=== PATIENT | female | born 1945 | race African-American/Black ===

== ENCOUNTER 2021-05-18 00:19 | Inpatient (IN) | payer MEDICARE, OTHER ==
[~2021-05-18] VITALS: Ht 157.5 cm; Wt 121.0 kg
[2021-05-18] MEDS ORDERED: FUROSEMIDE 40 MG/4 ML VIAL IV ONE (02:00)
[2021-05-18 02:41] LABS: Eosinophils # (auto) 0 10 ^3/uL (0-0.8)
[2021-05-18 02:44] LABS: Basophils # (auto) 0 10 ^3/uL (0-0.2); Basophils % (auto) 0.1 % (0.0-2.0); Hemoglobin 9.1 g/dL (12.2-16.2); Lymphocytes # (auto) 1.2 10 ^3/uL (0.4-5.4); Lymphocytes % (auto) 5.3 % (10.0-50.0); Mean Corpuscular Hemoglobin 26.4 pg (28.0-32.0); Mean Corpuscular Hgb Conc. 29.4 g/dL (32.0-36.0); Mean Corpuscular Volume 89.6 fL (80.0-100.0); Monocytes # (auto) 3.3 10 ^3/uL (0-1.3); Neutrophils # (auto) 17.6 10 ^3/uL (1.6-8.6); Neutrophils % (auto) 79.6 % (37.0-80.0); Red Blood Cells 3.46 10^6/uL (4.0-5.20); Red Cell Distribution Width 19.1 % (11.8-14.3); White Blood Cell 22.2 10^3/uL (4.4-10.8)
[2021-05-18 03:07] LABS: Albumin 2.3 g/dL (3.4-5.0); BUN/Creatinine Ratio 23.1; Calcium 9.8 mg/dL (8.5-10.1); Magnesium 2.3 mg/dL (1.6-2.6); Potassium 4.4 mmol/L (3.5-5.1)
[2021-05-18 03:10] LABS: Bilirubin, Total 0.3 mg/dL (0.2-1.0); Total Protein 7.8 g/dL (6.4-8.2)
[2021-05-18 03:14] LABS: Amphetamine Screen, Urine NEGATIVE (NEGATIVE); Barbiturate Scree,Urine NEGATIVE (NEGATIVE); Benzodiazephine Screen, Urine NEGATIVE (NEGATIVE); Cannabinoid Screen, Urine NEGATIVE (NEGATIVE); Cocaine Screen, Urine NEGATIVE (NEGATIVE)
[2021-05-18 03:16] LABS: Opiate Scree,Urine NEGATIVE (NEGATIVE); Phencyclidine Screen, Urine NEGATIVE (NEGATIVE)
[2021-05-18] MEDS ORDERED: ONDANSETRON HCL 4 MG/2 ML VIAL IV PRN (03:45)
[2021-05-18] MEDS ORDERED: ACETAMINOPHEN 325 MG TAB PO PRN (03:45)
[2021-05-18] MEDS ORDERED: AZITHROMYCIN 500MG/ 250ML 250 ML IV ONE (03:45)
[2021-05-18] MEDS ORDERED: DOCUSATE SOD 100 MG CAP PO PRN (03:45)
[2021-05-18] MEDS ORDERED: cefTRIAXone 1GM/50ML D5W 50 ML IV ONE ×3 (03:57→13:30)
[2021-05-18] MEDS ORDERED: NITROGLYCERIN 0.4 MG SL TAB SL PRN (05:30)
[2021-05-18] MEDS ORDERED: MORPHINE SULFATE INJECTION 2 MG/ML SYRG IV PRN (05:30)
[2021-05-18 05:38] LABS: Urine Bacteria NONE SEEN /hpf (None Seen); Urine Blood Negative /uL (Negative); Urine Hyaline Cast MOD /lpf (0 - 2); Urine Mucus FEW (None Seen); Urine Specific Gravity 1.016 (1.001-1.035); Urine WBC 106 /hpf (0 - 5); Urine WBC Clumps PRESENT /hpf (None Seen)
[2021-05-18 06:25] VITALS: BP 112/56
[2021-05-18] MEDS: SODIUM CHLOR 0.9% PF (SALINE LOCK) 10ML VIAL/SYR IV SCH ×3 (07:27→22:25)
[2021-05-18 08:08] LABS: Basophils # (auto) 0 10 ^3/uL (0-0.2); Basophils % (auto) 0.1 % (0.0-2.0); Eosinophils # (auto) 0 10 ^3/uL (0-0.8); Hematocrit 33.1 % (36.0-46.0); Hemoglobin 9.7 g/dL (12.2-16.2); Lymphocytes # (auto) 1.3 10 ^3/uL (0.4-5.4); Lymphocytes % (auto) 6.5 % (10.0-50.0); Mean Corpuscular Hemoglobin 26.3 pg (28.0-32.0); Mean Corpuscular Hgb Conc. 29.2 g/dL (32.0-36.0); Mean Corpuscular Volume 90.1 fL (80.0-100.0); Monocytes # (auto) 2.9 10 ^3/uL (0-1.3); Monocytes % (auto) 14.5 % (0.0-12.0); Neutrophils % (auto) 78.9 % (37.0-80.0); Red Blood Cells 3.68 10^6/uL (4.0-5.20); Red Cell Distribution Width 19.3 % (11.8-14.3); White Blood Cell 20.3 10^3/uL (4.4-10.8)
[2021-05-18 08:27] LABS: Albumin 2.5 g/dL (3.4-5.0); Calcium 10.2 mg/dL (8.5-10.1); Potassium 4.3 mmol/L (3.5-5.1)
[2021-05-18 08:30] LABS: BUN/Creatinine Ratio 24.4; Bilirubin, Total 0.3 mg/dL (0.2-1.0); Total Protein 8.3 g/dL (6.4-8.2)
[2021-05-18] MEDS ORDERED: FAMOTIDINE (10MG/ML) 2ML VL IV SCH (10:00)
[2021-05-18] MEDS: ASCORBIC ACID 500 MG TAB PO SCH ×2 (10:00→22:25)
[2021-05-18] MEDS ORDERED: FUROSEMIDE 40 MG/4 ML VIAL IV SCH (10:00)
[2021-05-18] MEDS: MULTIPLE VITAMIN TAB PO SCH (10:00)
[2021-05-18] MEDS: ZINC SULFATE 220mg CAP or TAB PO SCH (10:00)
[2021-05-18 10:19] VITALS: BP 144/72
[2021-05-18] MEDS: HEPARIN SODIUM (PORCINE) 5000 UNITS/ML 1ML VIAL SC SCH ×2 (12:00→22:26)
[2021-05-18] MEDS: AZITHROMYCIN 500MG/ 250ML 250 ML IV SCH (12:00)
[2021-05-18] MEDS ORDERED: GLUCAGON HYDROCHLORIDE (RDNA) 1 MG VIAL IV ONE (12:30)
[2021-05-18 17:20] LABS: Cholesterol 103 mg/dL (< 200); HDL Cholesterol 43 mg/dL (40-59); LDL Cholesterol 33 mg/dL (< 100); Triglycerides 90 mg/dL (< 150)
[2021-05-18] MEDS: FUROSEMIDE 40 MG/4 ML VIAL IV SCH (18:08)
[2021-05-18 21:10] VITALS: BP 129/55
[2021-05-19 04:03] LABS: Albumin 2.1 g/dL (3.4-5.0); Calcium 9.8 mg/dL (8.5-10.1)
[2021-05-19 04:20] LABS: BUN/Creatinine Ratio 27.1; Bilirubin, Total 0.3 mg/dL (0.2-1.0); Total Protein 6.8 g/dL (6.4-8.2)
[2021-05-19 05:00] VITALS: BP 126/56
[2021-05-19] MEDS: FUROSEMIDE 40 MG/4 ML VIAL IV SCH ×3 (06:00→17:59)
[2021-05-19] MEDS: SODIUM CHLOR 0.9% PF (SALINE LOCK) 10ML VIAL/SYR IV SCH ×3 (06:55→20:51)
[2021-05-19 07:51] LABS: Basophils # (auto) 0.1 10 ^3/uL (0-0.2); Basophils % (auto) 0.6 % (0.0-2.0); Eosinophils # (auto) 0 10 ^3/uL (0-0.8); Eosinophils % (auto) 0.3 % (0.0-7.0); Hematocrit 26.8 % (36.0-46.0); Hemoglobin 8.3 g/dL (12.2-16.2); Lymphocytes # (auto) 1.2 10 ^3/uL (0.4-5.4); Lymphocytes % (auto) 11.3 % (10.0-50.0); Mean Corpuscular Hemoglobin 27.3 pg (28.0-32.0); Mean Corpuscular Volume 87.9 fL (80.0-100.0); Monocytes # (auto) 0.9 10 ^3/uL (0-1.3); Monocytes % (auto) 8.7 % (0.0-12.0); Neutrophils # (auto) 8.2 10 ^3/uL (1.6-8.6); Neutrophils % (auto) 79.1 % (37.0-80.0); Nucleated Red Blood Cells % 0.1 %; Red Blood Cells 3.05 10^6/uL (4.0-5.20); Red Cell Distribution Width 18.3 % (11.8-14.3); White Blood Cell 10.3 10^3/uL (4.4-10.8)
[2021-05-19 08:11] LABS: BUN/Creatinine Ratio 27.6; Calcium 9.9 mg/dL (8.5-10.1); Potassium 4.1 mmol/L (3.5-5.1)
[2021-05-19] MEDS ORDERED: cefTRIAXone 1GM/50ML D5W 50 ML IV SCH (09:00)
[2021-05-19] MEDS: AZITHROMYCIN 500MG/ 250ML 250 ML IV SCH (12:31)
[2021-05-19] MEDS: ZINC SULFATE 220mg CAP or TAB PO SCH (12:31)
[2021-05-19] MEDS: HEPARIN SODIUM (PORCINE) 5000 UNITS/ML 1ML VIAL SC SCH ×2 (12:32→20:53)
[2021-05-19] MEDS: ASCORBIC ACID 500 MG TAB PO SCH ×2 (12:32→20:52)
[2021-05-19] MEDS: MULTIPLE VITAMIN TAB PO SCH (12:32)
[2021-05-19] MEDS ORDERED: VANCOMYCIN PER PHARMACY 0 MG IV SCH (16:00)
[2021-05-19] MEDS: VANCOMYCIN 1GM/250ML 250 ML IV SCH (17:57)
[2021-05-19] MEDS: SACUBITRIL-VALSARTAN 24mg/26mg TAB PO SCH (20:51)
[2021-05-19 22:00] VITALS: BP 134/50
[2021-05-20] MEDS: HYDROcodone-ACET 5/325MG TAB PO PRN (03:03)
[2021-05-20 05:00] VITALS: BP 122/65
[2021-05-20] MEDS: SODIUM CHLOR 0.9% PF (SALINE LOCK) 10ML VIAL/SYR IV SCH ×3 (06:01→21:20)
[2021-05-20] MEDS: FUROSEMIDE 40 MG/4 ML VIAL IV SCH ×2 (06:02→17:38)
[2021-05-20 06:27] LABS: Basophils # (auto) 0 10 ^3/uL (0-0.2); Basophils % (auto) 0.2 % (0.0-2.0); Eosinophils # (auto) 0 10 ^3/uL (0-0.8); Eosinophils % (auto) 0.4 % (0.0-7.0); Hematocrit 27.3 % (36.0-46.0); Hemoglobin 8.5 g/dL (12.2-16.2); Lymphocytes # (auto) 2.5 10 ^3/uL (0.4-5.4); Lymphocytes % (auto) 21.2 % (10.0-50.0); Mean Corpuscular Hemoglobin 27.3 pg (28.0-32.0); Mean Corpuscular Hgb Conc. 31.1 g/dL (32.0-36.0); Monocytes # (auto) 1.6 10 ^3/uL (0-1.3); Monocytes % (auto) 13.2 % (0.0-12.0); Neutrophils # (auto) 7.7 10 ^3/uL (1.6-8.6); Nucleated Red Blood Cells % 0.1 %; Red Cell Distribution Width 18.1 % (11.8-14.3); White Blood Cell 11.9 10^3/uL (4.4-10.8)
[2021-05-20 06:37] LABS: BUN/Creatinine Ratio 26.2; Calcium 9.8 mg/dL (8.5-10.1)
[2021-05-20] MEDS: AZITHROMYCIN 500MG/ 250ML 250 ML IV SCH (09:20)
[2021-05-20] MEDS: SACUBITRIL-VALSARTAN 24mg/26mg TAB PO SCH ×2 (09:20→21:21)
[2021-05-20] MEDS: ASCORBIC ACID 500 MG TAB PO SCH ×2 (09:21→21:21)
[2021-05-20] MEDS: ZINC SULFATE 220mg CAP or TAB PO SCH (09:21)
[2021-05-20] MEDS: MULTIPLE VITAMIN TAB PO SCH (09:21)
[2021-05-20] MEDS: HEPARIN SODIUM (PORCINE) 5000 UNITS/ML 1ML VIAL SC SCH ×2 (09:34→21:22)
[2021-05-20] MEDS: VANCOMYCIN 1GM/250ML 250 ML IV SCH (12:39)
[2021-05-20 13:02] VITALS: BP 111/57
[2021-05-20] MEDS ORDERED: cefTRIAXone 1GM/50ML D5W 50 ML IV ONE (13:15)
[2021-05-20] MEDS ORDERED: HYDR25TA87 PO (14:01)
[2021-05-20] MEDS ORDERED: FURO40TA4 PO (14:01)
[2021-05-20] MEDS ORDERED: MET25T PO (14:01)
[2021-05-20 14:42] LABS: Eosinophils # (auto) 0.1 10 ^3/uL (0-0.8); Lymphocytes # (auto) 3.1 10 ^3/uL (0.4-5.4); Mean Corpuscular Hgb Conc. 30.3 g/dL (32.0-36.0); Monocytes # (auto) 1.9 10 ^3/uL (0-1.3); Nucleated Red Blood Cells % 0.2 %; White Blood Cell 13.6 10^3/uL (4.4-10.8)
[2021-05-20 14:44] LABS: Basophils # (auto) 0.1 10 ^3/uL (0-0.2); Basophils % (auto) 0.5 % (0.0-2.0); Eosinophils % (auto) 0.6 % (0.0-7.0); Hemoglobin 8.8 g/dL (12.2-16.2); Lymphocytes % (auto) 22.8 % (10.0-50.0); Mean Corpuscular Hemoglobin 26.7 pg (28.0-32.0); Mean Corpuscular Volume 88.3 fL (80.0-100.0); Monocytes % (auto) 14.3 % (0.0-12.0); Neutrophils # (auto) 8.4 10 ^3/uL (1.6-8.6); Neutrophils % (auto) 61.8 % (37.0-80.0); Red Blood Cells 3.28 10^6/uL (4.0-5.20); Red Cell Distribution Width 18.5 % (11.8-14.3)
[2021-05-20 16:52] VITALS: BP 133/65
[2021-05-20 22:06] VITALS: BP 106/60
[2021-05-21 05:25] VITALS: BP 121/54
[2021-05-21 05:56] LABS: BUN/Creatinine Ratio 20.1; Calcium 9.2 mg/dL (8.5-10.1); Potassium 4.7 mmol/L (3.5-5.1)
[2021-05-21] MEDS: SODIUM CHLOR 0.9% PF (SALINE LOCK) 10ML VIAL/SYR IV SCH ×2 (06:53→14:00)
[2021-05-21] MEDS: FUROSEMIDE 40 MG/4 ML VIAL IV SCH (06:53)
[2021-05-21 09:05] VITALS: BP 138/85
[2021-05-21] MEDS: cefTRIAXone 1GM/50ML D5W 50 ML IV SCH (09:21)
[2021-05-21] MEDS: ZINC SULFATE 220mg CAP or TAB PO SCH (09:26)
[2021-05-21] MEDS: ASCORBIC ACID 500 MG TAB PO SCH ×2 (09:26→21:42)
[2021-05-21] MEDS: SACUBITRIL-VALSARTAN 24mg/26mg TAB PO SCH ×2 (09:26→21:41)
[2021-05-21] MEDS: MULTIPLE VITAMIN TAB PO SCH (09:27)
[2021-05-21] MEDS: HEPARIN SODIUM (PORCINE) 5000 UNITS/ML 1ML VIAL SC SCH (09:53)
[2021-05-21] MEDS: AZITHROMYCIN 500MG/ 250ML 250 ML IV SCH (11:02)
[2021-05-21] MEDS ORDERED: DRONEDARONE HCL 400 MG TAB PO ONE (12:30)
[2021-05-21 17:00] VITALS: BP 102/59
[2021-05-21] MEDS: FUROSEMIDE 20 MG/2 ML VIAL IV SCH (17:46)
[2021-05-21] MEDS: DRONEDARONE HCL 400 MG TAB PO SCH (21:42)
[2021-05-21] MEDS: APIXABAN 2.5 MG TAB PO SCH (21:43)
[2021-05-21] MEDS: HYDROcodone-ACET 5/325MG TAB PO PRN (21:45)
[2021-05-21 21:47] VITALS: BP 124/56
[2021-05-22] MEDS: SODIUM CHLOR 0.9% PF (SALINE LOCK) 10ML VIAL/SYR IV SCH ×4 (01:05→23:08)
[2021-05-22 05:00] VITALS: BP 100/54
[2021-05-22 06:32] LABS: Hematocrit 28.2 % (36.0-46.0); Hemoglobin 8.8 g/dL (12.2-16.2); Mean Corpuscular Hemoglobin 27.8 pg (28.0-32.0); Mean Corpuscular Hgb Conc. 31.3 g/dL (32.0-36.0); Mean Corpuscular Volume 88.8 fL (80.0-100.0); Red Blood Cells 3.17 10^6/uL (4.0-5.20); Red Cell Distribution Width 17.6 % (11.8-14.3); White Blood Cell 11.4 10^3/uL (4.4-10.8)
[2021-05-22] MEDS: FUROSEMIDE 20 MG/2 ML VIAL IV SCH ×2 (06:45→23:06)
[2021-05-22 06:51] LABS: BUN/Creatinine Ratio 23.3; Calcium 9.2 mg/dL (8.5-10.1); Potassium 4.7 mmol/L (3.5-5.1)
[2021-05-22 08:17] LABS: Basophils % (manual) 0 (0.0-2.0); Blast Cells 0; Metamyelocytes % 0; Myelocytes % 0; Promyelocytes % 0; Reactive Lymphocytes 0
[2021-05-22 09:00] VITALS: BP 136/69
[2021-05-22] MEDS: cefTRIAXone 1GM/50ML D5W 50 ML IV SCH (09:00)
[2021-05-22] MEDS: HYDROcodone-ACET 5/325MG TAB PO PRN (09:48)
[2021-05-22] MEDS: ZINC SULFATE 220mg CAP or TAB PO SCH (10:00)
[2021-05-22] MEDS: APIXABAN 2.5 MG TAB PO SCH ×2 (10:00→22:55)
[2021-05-22] MEDS: DRONEDARONE HCL 400 MG TAB PO SCH ×2 (10:00→23:06)
[2021-05-22] MEDS: AZITHROMYCIN 500MG/ 250ML 250 ML IV SCH (10:00)
[2021-05-22] MEDS: MULTIPLE VITAMIN TAB PO SCH (10:00)
[2021-05-22] MEDS: SACUBITRIL-VALSARTAN 24mg/26mg TAB PO SCH ×2 (10:00→22:57)
[2021-05-22] MEDS: ASCORBIC ACID 500 MG TAB PO SCH ×2 (10:00→22:55)
[2021-05-22 10:05] LABS: Band Neutrophils % (manual) 2; Eosinophils % (manual) 1 (0-7); Lymphocytes % (manual) 28 (10.0-50.0); Monocytes % (manual) 13 (0-12)
[2021-05-22] MEDS ORDERED: LEVO750T64 PO (11:48)
[2021-05-22] MEDS ORDERED: DRON400T PO (11:48)
[2021-05-22] MEDS ORDERED: APIX2.5T PO (11:48)
[2021-05-22] MEDS ORDERED: SACU1TAB PO (11:49)
[2021-05-22] MEDS ORDERED: levoFLOXacin 250 MG TAB PO ONE (12:00)
[2021-05-22 13:00] VITALS: BP 149/65
[2021-05-22 17:00] VITALS: BP 117/57
[2021-05-22 22:00] VITALS: BP 141/76
[2021-05-23 05:00] VITALS: BP 126/61
[2021-05-23] MEDS: FUROSEMIDE 20 MG/2 ML VIAL IV SCH (05:41)
[2021-05-23] MEDS: HYDROcodone-ACET 5/325MG TAB PO PRN (05:42)
[2021-05-23] MEDS: SODIUM CHLOR 0.9% PF (SALINE LOCK) 10ML VIAL/SYR IV SCH ×3 (05:42→22:27)
[2021-05-23 09:00] VITALS: BP 127/69
[2021-05-23] MEDS: AZITHROMYCIN 500MG/ 250ML 250 ML IV SCH (10:13)
[2021-05-23] MEDS: cefTRIAXone 1GM/50ML D5W 50 ML IV SCH (10:13)
[2021-05-23] MEDS: DRONEDARONE HCL 400 MG TAB PO SCH ×2 (10:14→22:28)
[2021-05-23] MEDS: ZINC SULFATE 220mg CAP or TAB PO SCH (10:14)
[2021-05-23] MEDS: SACUBITRIL-VALSARTAN 24mg/26mg TAB PO SCH ×2 (10:14→22:28)
[2021-05-23] MEDS: APIXABAN 2.5 MG TAB PO SCH ×2 (10:14→22:27)
[2021-05-23] MEDS: MULTIPLE VITAMIN TAB PO SCH (10:14)
[2021-05-23] MEDS: ASCORBIC ACID 500 MG TAB PO SCH ×2 (10:14→22:28)
[2021-05-23] MEDS ORDERED: FURO1TAB33 PO (11:02)
[2021-05-23] MEDS ORDERED: FUROSEMIDE 20 MG/2 ML VIAL IV ONE (11:15)
[2021-05-23 13:00] VITALS: BP 139/82
[2021-05-23 17:00] VITALS: BP 147/68
[2021-05-23] MEDS: FUROSEMIDE 40 MG/4 ML VIAL IV SCH (17:40)
[2021-05-23 22:00] VITALS: BP 145/70
[2021-05-24] MEDS: HYDROcodone-ACET 5/325MG TAB PO PRN (01:53)
[2021-05-24 05:00] VITALS: BP 130/73
[2021-05-24] MEDS: SODIUM CHLOR 0.9% PF (SALINE LOCK) 10ML VIAL/SYR IV SCH ×3 (05:44→22:15)
[2021-05-24] MEDS: FUROSEMIDE 40 MG/4 ML VIAL IV SCH ×2 (05:44→17:59)
[2021-05-24 08:00] VITALS: BP 126/51
[2021-05-24] MEDS: cefTRIAXone 1GM/50ML D5W 50 ML IV SCH (09:31)
[2021-05-24] MEDS: SACUBITRIL-VALSARTAN 24mg/26mg TAB PO SCH ×2 (09:35→22:13)
[2021-05-24] MEDS: ZINC SULFATE 220mg CAP or TAB PO SCH (09:35)
[2021-05-24] MEDS: APIXABAN 2.5 MG TAB PO SCH ×2 (09:36→22:12)
[2021-05-24] MEDS: DRONEDARONE HCL 400 MG TAB PO SCH ×2 (09:36→22:13)
[2021-05-24] MEDS: MULTIPLE VITAMIN TAB PO SCH (09:36)
[2021-05-24] MEDS: ASCORBIC ACID 500 MG TAB PO SCH ×2 (09:36→22:13)
[2021-05-24 09:44] VITALS: BP 136/64
[2021-05-24] MEDS: AZITHROMYCIN 500MG/ 250ML 250 ML IV SCH (10:35)
[2021-05-24 13:00] VITALS: BP 118/64
[2021-05-24 17:00] VITALS: BP 133/73
[2021-05-24 22:00] VITALS: BP 144/71
[2021-05-25] MEDS: HYDROcodone-ACET 5/325MG TAB PO PRN (03:25)
[2021-05-25 05:00] VITALS: BP 139/68
[2021-05-25] MEDS: SODIUM CHLOR 0.9% PF (SALINE LOCK) 10ML VIAL/SYR IV SCH ×2 (05:18→15:33)
[2021-05-25] MEDS: FUROSEMIDE 40 MG/4 ML VIAL IV SCH (05:18)
[2021-05-25] MEDS: MULTIPLE VITAMIN TAB PO SCH (09:32)
[2021-05-25] MEDS: ZINC SULFATE 220mg CAP or TAB PO SCH (09:32)
[2021-05-25] MEDS: APIXABAN 2.5 MG TAB PO SCH (09:32)
[2021-05-25] MEDS: cefTRIAXone 1GM/50ML D5W 50 ML IV SCH (09:32)
[2021-05-25] MEDS: SACUBITRIL-VALSARTAN 24mg/26mg TAB PO SCH (09:32)
[2021-05-25] MEDS: ASCORBIC ACID 500 MG TAB PO SCH (09:33)
[2021-05-25] MEDS: DRONEDARONE HCL 400 MG TAB PO SCH (09:33)
[2021-05-25] MEDS: AZITHROMYCIN 500MG/ 250ML 250 ML IV SCH (11:00)
[2021-05-25 15:16] VITALS: BP 143/79
== END 2021-05-25 18:38 | disposition home health service (06) | DRG 871 ==
LOC: EDBD 00:19 → ER 00:34 → TELE 05:28 → TELE-WESTW 21:10
PROVIDERS: ADMIT Nurse Practitioner Family; ATTEND Internal Medicine Pulmonary Disease
PROC: 5A09357 Assistance with Respiratory Ventilation, Less than 24 Consecutive Hours, Continuous Positive Airway Pressure (ICD-10-PCS; principal; 2021-05-18)
PROC: 5A09357 Assistance with Respiratory Ventilation, Less than 24 Consecutive Hours, Continuous Positive Airway Pressure (ICD-10-PCS; 2021-05-19)
PROC: 5A09357 Assistance with Respiratory Ventilation, Less than 24 Consecutive Hours, Continuous Positive Airway Pressure (ICD-10-PCS; 2021-05-20)
PROC: 5A09357 Assistance with Respiratory Ventilation, Less than 24 Consecutive Hours, Continuous Positive Airway Pressure (ICD-10-PCS; 2021-05-21)
DX: A41.9 Sepsis, unspecified organism (principal); J18.9 Pneumonia, unspecified organism; I50.33 Acute on chronic diastolic (congestive) heart failure; G93.41 Metabolic encephalopathy; J96.01 Acute respiratory failure with hypoxia; I47.2 Ventricular tachycardia; J44.1 Chronic obstructive pulmonary disease with (acute) exacerbation; E66.2 Morbid (severe) obesity with alveolar hypoventilation; J44.0 Chronic obstructive pulmonary disease with (acute) lower respiratory infection; I44.2 Atrioventricular block, complete; J91.8 Pleural effusion in other conditions classified elsewhere; Z68.42 Body mass index [BMI] 45.0-49.9, adult; E87.2 Acidosis; E88.09 Other disorders of plasma-protein metabolism, not elsewhere classified; I11.0 Hypertensive heart disease with heart failure; I48.0 Paroxysmal atrial fibrillation; R00.8 Other abnormalities of heart beat; R79.89 Other specified abnormal findings of blood chemistry; Z20.822 Contact with and (suspected) exposure to COVID-19; D63.8 Anemia in other chronic diseases classified elsewhere; I50.82 Biventricular heart failure; R25.1 Tremor, unspecified; B96.89 Other specified bacterial agents as the cause of diseases classified elsewhere; Z88.0 Allergy status to penicillin
CPT/HCPCS: 36415; 36600; 70450; 71045; 71250; 80048; 80053; 80061; 80307; 81001; 82805; 83036; 83605; 83735; 83880; 84443; 84484; 85007; 85025; 85027; 85379; 87040; 87077; 87186; 87426; 93005; 93306; 94660; 96365; 96368; 96375; G0378; J0696; J2405; J3490